=== PATIENT | female | born 1965 | race African-American/Black ===

== ENCOUNTER 2021-12-30 12:30 | Emergency (ER) | payer BC, SELFPAY ==
[2021-12-30] VITALS (23 sets, daily range): BP systolic 120–148; BP diastolic 82–98; PULSE 60–78; RESP 14–28; TEMP 36.8; O2SAT 96–100
--- NOTE | ~2021-12-30 | NM_ITS ---
NM pulmonary perfusion INDICATION: Elevated d-dimer TECHNIQUE: Following ventilation scan, 4.7 mCi Tc 99m MAA was injected intravenously for perfusion im ages. Multiple images were then acquired. COMPARISON: Chest x-ray dated chest dated 12/30/2021 FINDINGS: The comparison chest radiograph demonstrates no pulmonary infiltrates or pleural fluid. Per fusion images are within normal limits. No wedge-shaped defects are identified.. IMPRESSION: 1: Normal perfusion images. Reviewed, dictated and finalized at location A. IMPRESSION: 1: Normal perfusion images.
--- NOTE | ~2021-12-30 | XR_ITS ---
XR chest 2V DATE: 12/30/2021 12:59 INDICATION: Chest pain TECHNIQUE: PA and lateral views COMPARISON: None FINDINGS: Normal heart size. No hilar or mediastinal enlargement. No pulmonary infiltrate or consolid ation, pleural effusion or pulmonary vascular congestion or pneumothorax. IMPRESSION: No active cardiopulmonary disease Reviewed, dictated and finalized at location A.
--- NOTE | 2021-12-30 12:32 | ECG_ITS ---
Measurements Intervals [place] Rate: 66 P: 39 [place]: 203 QRS: 15 QRSD: 80 T: 84 QT: 376 QTc: 394 Interpretive Statements SINUS RHYTHM POOR R-WAVE PROGRESSION/CANNOT EXCLUDE PREVIOUS ANTEROSEPTAL CT NONSPECIFIC T-WAVE FLATTENING ABNORMAL ECG Electronically Signed On 12-31-2021 14:11:32 CDT by Gino Wells M.D.
[2021-12-30 13:17] LABS: Basophils Percent Auto 0.7 % (0.2-1.2); Eosinophils Percent Auto 0.7 % (0-4.4); Hematocrit 38.2 % (37.0-47.0); Hemoglobin 12.6 g/dL (12.0-15.0); Lymphocytes Absolute Auto 2.09 K/mm3 (0.9-3.2); Lymphocytes Percent Auto 69.2 % (18.3-44.2); Mean Corpuscular Hemoglobin 26.9 pg (26-34); Mean Corpuscular Volume 81.4 fl (80-100); Mean Platelet Volume 10.9 fl (7.4-10.4); Monocytes Absolute Auto 0.3 K/mm3 (0.1-0.6); Monocytes Percent Auto 9.6 % (2.6-8.5); Neutrophils Absolute Auto 0.6 K/mm3 (1.3-6.7); Neutrophils Percent Auto 19.8 % (45.5-73.1); Platelet Count Result 221 k/mm3 (150-375); Red Blood Count 4.69 M/mm3 (4.2-5.4); Red Cell Distribution Width 15.4 % (11.5-14.5)
[2021-12-30 13:27] LABS: Prothrombin Time 12.4 Seconds (11.1-14.7)
[2021-12-30 13:28] LABS: Alanine Aminotransferase 33 U/L (6-35); Albumin Level 4.6 g/dL (3.5-5.1); Alkaline Phosphatase 85 U/L (38-126); Anion Gap 8 mmol/L (8-16); Aspartate Amino Transferase 25 U/L (14-36); Bilirubin,Total 0.5 mg/dL (0.2-1.3); Blood Urea Nitrogen 14 mg/dL (7-17); Calcium 8.6 mg/dL (8.4-10.2); Carbon Dioxide 31 mmol/L (22-30); Chloride 99 mmol/L (98-107); Estimated CRCL calculation 90 ml/min; Estimated Glomerular Filt Rate > 60; Glucose 108 mg/dL (65-110); Lipase 61 U/L (23-300); Partial Thromboplastin Time 24.8 SECONDS (22.3-36.8); Potassium 3.6 mmol/L (3.4-5.0); Sodium 138 mmol/L (137-145)
[2021-12-30 13:35] LABS: Anisocytosis 1+ (NORMAL); Platelet Estimate Adequate (Adequate); Poikilocytosis 1+ (NORMAL)
[2021-12-30 13:40] LABS: Troponin I < 0.012 ng/mL (0.000-0.034)
[2021-12-30] MEDS: ASPIRIN 81 MG CHEWABLE TABLET 324 MG PO (15:16)
--- NOTE | 2021-12-30 15:48 | ED.CHESTPAIN ---
HPI - Chest Pain General Chief Complaint: Chest Pain Stated Complaint: chest pain Time Seen by Provider: 12/30/21 15:35 Source: patient Mode of arrival: ambulatory Limitations: no limitations History of Present Illness HPI narrative: 56 years old -[place] female presents with right chest pain that started 1 week ago, got worse since last night, has been constant since. Worse with certain movement or deep breathing. She denies any fever, chills, nausea, vomiting, shortness of breath. 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 No family history of coronary artery disease, history of hypertension. Patient does not smoke ,drinks occasionally. Related Data Allergies Allergy/AdvReac Type Severity Reaction Status Date / Time No Known Allergies Allergy Verified 12/30/21 15:10 Review of Systems Review of Systems: All systems reviewed & are unremarkable except as noted in HPI and below Exam Narrative: General appearance: Well-developed, well-nourished Skin: Normal color Head: Normocephalic, nontraumatic Eyes: Clear conjunctiva ENT: Oropharynx normal, ears normal, nose normal Neck: Supple, nontender Chest and respiratory: Airway patent, no respiratory distress, no accessory muscle use, mild diffuse tenderness right upper chest and right upper back. No bruises, no swelling or rash Heart: Regular rate/rhythm Abdomen: Soft, nontender, no organomegaly, quiet bowel sounds Vascular: Normal peripheral pulses, normal capillary refill. Musculoskeletal: Normal range of motion, nontender back Neurologic: Alert and oriented ?3, BODY MECHANIC is normal as tested, no gross motor deficit Course Vital Signs Vital signs: Vital Signs Temperature 36.8 C 12/30/21 12:33 Pulse Rate 70 12/30/21 12:33 Respiratory Rate 16 12/30/21 12:33 Blood Pressure 148/90 H 12/30/21 12:33 Pulse Oximetry 99 12/30/21 12:33 Oxygen Delivery Room Air 12/30/21 12:33 Temperature 36.8 C 12/30/21 12:33 Pulse Rate 69 12/30/21 16:56 Respiratory Rate 20 12/30/21 16:56 Blood Pressure 138/91 H 12/30/21 16:56 Pulse Oximetry 100 12/30/21 16:56 Oxygen Delivery Room Air 12/30/21 15:06 MDM - Chest Pain Lab Data Result diagrams: 12/30/21 13:12 12/30/21 13:12 Labs: Lab Results 12/30/21 12/30/21 12/30/21 Range/Units 13:12 13:12 13:12 WBC 3.0 L (4.5-10.0) K/mm3 RBC 4.69 (4.2-5.4) M/mm3 Hgb 12.6 (12.0-15.0) g/dL Hct 38.2 (37.0-47.0) % MCV 81.4 (80-100) fl MCH 26.9 (26-34) pg MCHC 33.0 (32-36) g/dl RDW 15.4 H (11.5-14.5) % Plt Count 221 (150-375) k/mm3 MPV 10.9 H (7.4-10.4) fl Immature Gran % (Auto) 0.0 (0-0.5) % Neut % (Auto) 19.8 L (45.5-73.1) % Lymph % (Auto) 69.2 H (18.3-44.2) % Curry % (Auto) 9.6 H (2.6-8.5) % Eos % (Auto) 0.7 (0-4.4) % Baso % (Auto) 0.7 (0.2-1.2) % Lymph # (Auto) 2.09 (0.9-3.2) K/mm3 Curry # (Auto) 0.3 (0.1-0.6) K/mm3 Eos # (Auto) 0.0 (0-0.3) K/mm3 Baso # (Auto) 0.0 (0.0-0.1) K/mm3 Abs Immat Gran (auto) 0.00 (0.00-0.031) K/mm3 Absolute Neuts (auto) 0.6 L (1.3-6.7) K/mm3 Absolute Nucleated RBC 0.0 (0.0-0.012) K/mm3 Nucleated RBC % 0.0 (0.0-0.2) % Platelet Estimate Adequate (Adequate) Poikilocytosis 1+ (NORMAL) Anisocytosis 1+ (NORMAL) PT 12.4 (11.1-14.7) Seconds INR 1.0 APTT 24.8 (22.3-36.8) SECONDS D-Dimer (<0.48) ug/mL Sodium 138 (137-145) mmol/L Potassium 3.6 (3.4-5.0) mmol/L Chloride 99 (98-107) mmol/L Carbon Dioxide 31 H (22-30) mmol/L Anion Gap 8 (8-16) mmol/L BUN 14 (7-17) mg/dL Creatinin
[2021-12-30 15:59] LABS: Troponin I < 0.012 ng/mL (0.000-0.034)
[2021-12-30 16:56] LABS: SARS-CoV-2 RNA PCR Positive
[2021-12-30 18:39] LABS: D Dimer 0.71 ug/mL (<0.48)
[2021-12-30 19:09] LABS: Troponin I < 0.012 ng/mL (0.000-0.034)
--- NOTE | 2021-12-30 19:12 | PC.NURSE ---
Report received from REAL Parr. This nurse assumed care of patient at this time.
--- NOTE | 2021-12-30 20:00 | PC.NURSE ---
Patient voices complaints this nurse, states I fee like I have not gotten proper treatment, I feel that because a I have covid, everyone is giving me sub par care. This nurse reassured patient that she is being treated with excellent care and being treated equal as other patients. Patient stated she is unhappy with her care and also needs a ride home when she leaves. Patient informed of cab numbers and services in the area. Patient updated on her plan of care for the V/Q scan. Patient states she is okay with the plan of care and that she will wait. Patient was given some water and a box lunch upon request. ERP and brigadier aware of patients complaints.
--- NOTE | 2021-12-30 21:45 | PC.NURSE ---
Patient readjusted in bed, and updated on time of her scan. Patient noted to have removed her IV in her right hand. Patient informed that she needs and IV for her V/Q scan. This nurse spoke with radiology to confirm IV gauge required for scan, 24g at minimum.
--- NOTE | 2021-12-30 22:10 | PC.NURSE ---
2203 24g IV placed in her left hand for V/Q scan.
--- NOTE | 2021-12-30 22:10 | PC.NURSE ---
Patient taken to V/Q scan at this time.
--- NOTE | 2021-12-31 00:46 | PC.NURSE ---
Called radiology to see if or why the report for patients V/Q scan was taking so long. Informed that the scan was never sent to [facility], but CT stated they will send it now.
== END 2021-12-31 01:31 | disposition home or self-care (01) ==
PROVIDERS: Emergency Medicine; Emergency Provider Emergency Medicine
DX: U07.1 COVID-19 (principal); R07.9 Chest pain, unspecified; D72.819 Decreased white blood cell count, unspecified
CPT/HCPCS: 36415; 71046; 78580; 80053; 83690; 84484; 85025; 85380; 85610; 85730; 93005; 99284; A9270; A9540; C9803; U0003; U0005

== ENCOUNTER 2022-09-01 11:21 | Emergency (ER) | payer SELFPAY ==
[2022-09-01 11:27] VITALS: BP 147/88; PULSE 69; RESP 18; TEMP 36.9; O2SAT 99
--- NOTE | 2022-09-01 12:19 | ED.DENTAL ---
HPI - Dental/Oral General Chief complaint: Dental/Oral Stated complaint: Tooth Time Seen by Provider: 09/01/22 11:39 Source: patient Mode of arrival: ambulatory Limitations: no limitations History of Present Illness HPI Narrative: Patient is a 57 y/o female who presents to the ED with c/o R upper posterior toothache. Patient reports a Hx of fractured R upper posterior molar, tooth #1, with dental caries. She reports having increased pain and sensitivity to the tooth for the past 2-3 weeks. 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 She has seen a dentist there and is scheduled to have the tooth removed within the next couple of weeks. The pain became severe last night into today, which prompted her presentation. Patient took ibuprofen around 3 AM this morning. Denies any difficulty swallowing or breathing, fevers, nausea, vomiting, drainage. Teeth map: 1. dental caries, pain Related Data Allergies Allergy/AdvReac Type Severity Reaction Status Date / Time No Known Allergies Allergy Verified 09/01/22 11:21 Review of Systems Review of Systems: CONSTITUTIONAL: Denies fever, chills, or sweats. ENT: See HPI. CARDIOVASCULAR: Denies chest pain. RESPIRATORY: Denies dyspnea. GASTROINTESTINAL: Denies nausea, vomiting. All systems reviewed & are unremarkable except as noted in HPI and below PMFSH Past Medical History Medical History (Updated 09/01/22 @ 13:12 by Sola Mijares PA-C) Anxiety HTN (hypertension) Surgical History Surgical History (Updated 09/01/22 @ 13:12 by Sola Mijares PA-C) No pertinent past surgical history Social History Social History (Updated 09/01/22 @ 13:12 by Sola Mijares PA-C) Smoking status: Never smoker Exam Narrative: GENERAL: Well appearing, morbidly obese, non-toxic, in no acute distress. HEAD: Normocephalic, atraumatic. ENT: Diffuse dental decay, scattered dental caries. Tenderness to inner and outer gumline surrounding tooth #1, right upper posterior molar. Erythema noted to gumline surrounding tooth. No focal abscess. No drainage. Patient tolerating secretions. No signs of airway compromise. No stridor. No facial swelling. NECK: Supple. No adenopathy, no masses. No swelling. RESPIRATORY: Airway patent, respirations nonlabored. Clear to auscultation bilaterally, no rales, rhonchi, wheezing. CARDIOVASCULAR: Regular rate and rhythm without murmurs, rubs, or gallops. Radial pulses 2+ and equal bilaterally. MUSCULOSKELETAL: Moves all extremities. Strength/ROM intact without gross deformities. SKIN: Warm, dry, normal color. No rashes. NEURO: A&O X3. Speech clear. Cranial nerves II-XII grossly intact. Steady gait. No ataxic movements. PSYCHIATRIC: Appropriate mood and affect. Normal interaction. Course Vital Signs Vital signs: Vital Signs Temperature 98.5 F 09/01/22 11:27 Pulse Rate 69 09/01/22 11:27 Respiratory Rate 18 09/01/22 11:27 Blood Pressure 147/88 H 09/01/22 11:27 Pulse Oximetry 99 09/01/22 11:27 Oxygen Delivery Room Air 09/01/22 11:27 Temperature 98.5 F 09/01/22 11:27 Pulse Rate 69 09/01/22 11:27 Respiratory Rate 18 09/01/22 11:27 Blood Pressure 147/88 H 09/01/22 11:27 Pulse Oximetry 99 09/01/22 11:27 Oxygen Delivery Room Air 09/01/22 11:27 MDM - Dental/Oral MDM Narrative Medical decision making narrative: Patient's pain is consistent with dental caries. There are no focal signs of space-occupying abscess. The patient is controlling secretions well without signs of airway compromise. Patient is felt reasonable for outpatient follow-up with dental evaluation. Patient does have follow-up scheduled within the next couple weeks for dental extraction. Will provide antibiotics and a few [place] for further pain management. Given dose of Toradol in the ED. Patient given return precautions. She agrees with plan. Discharged in stable condition. Medical Records Attestatio
[2022-09-01] MEDS: KETOROLAC (*BKC) 60 MG/2 ML VIAL IM (12:36)
== END 2022-09-01 12:58 | disposition home or self-care (01) ==
PROVIDERS: Emergency Provider Physician Assistant
DX: K02.9 Dental caries, unspecified (principal); K08.89 Other specified disorders of teeth and supporting structures
CPT/HCPCS: 96372; 99283; J1885

== ENCOUNTER 2022-12-27 14:47 | Emergency (ER) | payer OTHER, SELFPAY ==
[2022-12-27] VITALS (16 sets, daily range): BP systolic 143–183; BP diastolic 85–104; PULSE 65–76; RESP 14–25; TEMP 36.7; O2SAT 98–100
--- NOTE | 2022-12-27 15:14 | ECG_ITS ---
Measurements Intervals [place] Rate: 64 P: 29 CT: 215 QRS: 2 QRSD: 82 T: 117 QT: 399 QTc: 413 Interpretive Statements SINUS RHYTHM WITH FIRST DEGREE AV BLOCK NONSPECIFIC T-WAVE CHANGES COMPARED TO ECG 12/30/2021 12:37:56 FIRST DEGREE AV BLOCK NOW PRESENT Electronically Signed On 12-28-2022 8:50:07 CDT by Maile Peoples M.D.
[2022-12-27 16:00] LABS: Basophils Percent Auto 0.8 % (0.2-1.2); Eosinophils Absolute Auto 0.1 K/mm3 (0-0.3); Eosinophils Percent Auto 1.6 % (0-4.4); Hematocrit 37.1 % (37.0-47.0); Hemoglobin 12.5 g/dL (12.0-15.0); Immature Granulocyte Absolute 0.01 K/mm3 (0.00-0.031); Immature Granulocyte Percent A 0.3 % (0-0.5); Lymphocytes Absolute Auto 2.02 K/mm3 (0.9-3.2); Mean Corpuscular HGB Conc 33.7 g/dl (32-36); Mean Corpuscular Hemoglobin 27.5 pg (26-34); Mean Corpuscular Volume 81.5 fl (80-100); Mean Platelet Volume 11.5 fl (7.4-10.4); Monocytes Absolute Auto 0.3 K/mm3 (0.1-0.6); Monocytes Percent Auto 8.8 % (2.6-8.5); Neutrophils Absolute Auto 1.3 K/mm3 (1.3-6.7); Neutrophils Percent Auto 34.5 % (45.5-73.1); Platelet Count Result 256 k/mm3 (150-375); Red Blood Count 4.55 M/mm3 (4.2-5.4); Red Cell Distribution Width 15.4 % (11.5-14.5); White Blood Count 3.7 K/mm3 (4.5-10.0)
[2022-12-27 17:47] LABS: NT Pro B Type Natriuretic Pept < 20 pg/mL (19.9-100)
[2022-12-27 18:15] LABS: Appearance Urine Cloudy (Clear); Bacteria Urine 4+ /hpf; Bilirubin Urine Negative (Negative); Blood Urine Negative (Negative); Color Urine Yellow (Yellow); Glucose Urine UA Negative (Negative); Ketones Urine Trace mg/dL (Negative); Leukocyte Esterase Ur 2+ LEU/UL (Negative); Nitrate Urine Negative (Negative); Non Pathogenic Casts 0-2; Protein Urine Trace mg/dL (Negative); Specific Grav Ur 1.026 (1.001-1.035); Squamous Epithelial Cell Urine Moderate /hpf (Few); WBC Urine 21-50 /hpf
--- NOTE | 2022-12-27 18:17 | ED.WEAKNESS ---
HPI - Weakness General Chief complaint: Weakness <Suma Carrasco APRN - Last Filed: 12/27/22 21:03> Stated complaint: Weakness x 2 weeks <Suma Carrasco APRN - Last Filed: 12/27/22 21:03> Time Seen by Provider: 12/27/22 17:06 <Suma Carrasco APRN - Last Filed: 12/27/22 21:03> Source: patient <Suma Carrasco APRN - Last Filed: 12/27/22 21:03> Mode of arrival: ambulatory <Suma Carrasco APRN - Last Filed: 12/27/22 21:03> Limitations: no limitations <Suma Carrasco APRN - Last Filed: 12/27/22 21:03> History of Present Illness HPI Narrative: patient is a very pleasant 57-year-old female with a past medical history of obesity, hypertension, anxiety, rheumatoid arthritis who presents emergency department today for concerns of feeling fatigue/ exhaustion over the last 2 weeks. 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 She states that she felt that her left lower ankle seems to be little bit more swollen thank usual however this happens to her at times whenever she is working a lot has her feet down. she states that she has also had urinary frequency. Treatment patient denies any chest pain, shortness a breath, dizziness, fever, chills, headache, nausea, vomiting, diarrhea constipation, low back pain, numbness or tingling in upper lower extremities, weakness to extremities, or any other symptoms. denies hx of DVT/PE. denies hx of CHF., denies new medications. <Suma Carrasco APRN - Last Filed: 12/27/22 21:03> Related Data Allergies/Adverse reactions: Allergies Allergy/AdvReac Type Severity Reaction Status Date / Time No Known Allergies Allergy Verified 09/01/22 11:21 <Suma Carrasco APRN - Last Filed: 12/27/22 21:03> Review of Systems Review of Systems: CONSTITUTIONAL: Denies fever, chills, or sweats. +fatigue/exhaustion. EYES: Denies visual changes, redness, or discharge. ENT: Denies rhinorrhea, congestion, sore throat, or otalgia. CARDIOVASCULAR: Denies chest pain, palpitations, or edema. RESPIRATORY: Denies cough or dyspnea. GASTROINTESTINAL: Denies abdominal pain, nausea, vomiting, or diarrhea. GENITOURINARY: Denies dysuria or hematuria. +frequency/urgency/odor. SKIN: Denies rash or itching. MUSCULOSKELETAL: Denies back pain, joint pain, or myalgia. NEUROLOGIC: Denies headache, numbness, or weakness. PSYCHIATRIC: Denies anxiety or depression. <Suma Carrasco APRN - Last Filed: 12/27/22 21:03> All systems reviewed & are unremarkable except as noted in HPI and below <Suma Carrasco APRN - Last Filed: 12/27/22 21:03> PMFSH Past Medical History Medical History: Medical History Anxiety HTN (hypertension) <Suma Carrasco APRN - Last Filed: 12/27/22 21:03> Surgical History Surgical History: Surgical History No pertinent past surgical history <Suma Carrasco APRN - Last Filed: 12/27/22 21:03> Social History Social History: Social History Smoking status: Never smoker <Suma Carrasco APRN - Last Filed: 12/27/22 21:03> Exam Narrative: GENERAL: Well-appearing, well-nourished, overweight, and in no acute distress. HEAD: Normocephalic, atraumatic. EYES: PERRLA and EOMI. ENT: Nares clear, no rhinorrhea or epistaxis. Mucous membranes moist. NECK: Supple. CHEST: Clear to auscultation. No respiratory distress. HEART: Regular rate and rhythm. No murmur heard. Normal peripheral pulses. ABDOMEN: Soft, nontender, nondistended, normal active bowel sounds. EXTREMITIES: Normal range of motion. No edema. no erythema/edema/warmth to BLE. full ROM to BLE. negative Homans sign bilaterally. no swelling noted to left ankle. SKIN: Warm, dry, no rash. NEURO: No focal deficits. Alert and oriented x3.cranial nerves II-XII grossly intact, PERRLA. Normal motor function, N
[2022-12-27 18:29] LABS: Alanine Aminotransferase 27 U/L (6-35); Albumin Level 4.3 g/dL (3.5-5.1); Alkaline Phosphatase 63 U/L (38-126); Aspartate Amino Transferase 26 U/L (14-36); Bilirubin,Total 0.3 mg/dL (0.2-1.3); Blood Urea Nitrogen 12 mg/dL (7-17); Calcium 8.5 mg/dL (8.4-10.2); Carbon Dioxide 26 mmol/L (22-30); Estimated Glomerular Filt Rate > 60; Glucose 117 mg/dL (65-110); Potassium 3.3 mmol/L (3.4-5.0); Sodium 138 mmol/L (137-145)
[2022-12-27 18:39] LABS: Anion Gap 6 mmol/L (8-16); Chloride 106 mmol/L (98-107)
[2022-12-27 18:42] LABS: Add Urine Microscopic? YES
[2022-12-27] MEDS: POTASSIUM CHLORIDE 20 MEQ PACKET (FOR LIQUID) PO (19:10)
== END 2022-12-27 19:14 | disposition home or self-care (01) ==
PROVIDERS: Emergency Medicine; Emergency Provider Nurse Practitioner
DX: N30.00 Acute cystitis without hematuria (principal); I10 Essential (primary) hypertension; E87.6 Hypokalemia; R53.83 Other fatigue; M06.9 Rheumatoid arthritis, unspecified; E66.9 Obesity, unspecified; I44.0 Atrioventricular block, first degree
CPT/HCPCS: 36415; 80053; 81001; 83880; 85025; 87086; 93005; 99283; A9270